=== PATIENT | male | born 1980 | race Two or more races ===

== ENCOUNTER 2022-07-04 16:35 | Observation (INO) | payer SELFPAY ==
--- NOTE | ~2022-07-04 | XR_ITS ---
EXAMINATION: XR retrograde pyelogram RT DATE: 07/05/2022 11:00 MINE ADMINISTRATOR SUPERVISOR INDICATION: RT STONE EXTRACTION, RETRO . TECHNIQUE: 1 fluoroscopic image and one cine clip of 56 images of the right lower quadrant were obtai will during right retrograde pyelography and stone extraction performed by the surgeon. I was not pres ent in the operating room. Fluoroscopy exposure time was 19.2 seconds. DAP [id number] [id number]. COMPARISON: X-ray abdomen 07/04/2022 FINDINGS: The 7 x 2 mm calcification in the right hemipelvis is noted in the initial cine image and appears to be located in the distal ureter but is quickly obscured by contrast. Multiple air bubble filling defe cts. Mild ureteral ectasia. Wire access accomplished to the upper collecting system. IMPRESSION: Fluoroscopic documentation of right retrograde pyelography and stone extraction. Please refer to the operative note for complete procedural details . Reviewed, dictated and finalized at location K. ADMINISTRATOR SUPERVISOR IMPRESSION: Fluoroscopic documentation of right retrograde pyelography and stone extraction . Please refer to the operative note for complete procedural details .
--- NOTE | ~2022-07-04 | XR_ITS ---
EXAMINATION: XR abdomen/kub 1V DATE: 07/04/2022 19:26 INDICATION: Urolithiasis TECHNIQUE: A supine view of the abdomen on 2 radiographs was obtained. COMPARISON: None. FINDINGS: 7 x 2 mm calcification suspicious for distal ureteral stone located at and oriented along the normal course of the distal ureter at the right ureterovesicular junction. No other suspicious calcification s in the abdomen or pelvis. No dilated loops of gas-filled bowel to suggest obstruction. Lung bases a re clear. Heart size is normal. Bones and soft tissues are unremarkable. IMPRESSION: 1. 7 x 2 mm calcification at the right hemipelvis suspicious for stone at the right ureterovesicular junction. Reviewed, dictated and finalized at location A. EATIONAL RESORT MANAGER IMPRESSION: 1. 7 x 2 mm calcification at the right hemipelvis suspicious for stone at the r ight ureterovesicular junction.
[2022-07-04 17:41] VITALS: BP 128/74; PULSE 75; RESP 16; TEMP 37.1; O2SAT 99
--- NOTE | 2022-07-04 19:16 | ED.MALEGU ---
HPI - Male Genitourinary General Chief complaint: Urogenital-Male <Aiyana Butler PA-C - Last Filed: 07/05/22 00:26> Stated complaint: flank pain <LEE Moctezuma Last Filed: 07/05/22 00:26> Time Seen by Provider: 07/04/22 19:01 <Aiyana Butler PA-C - Last Filed: 07/05/22 00:26> Source: patient <LEE Moctezuma Last Filed: 07/05/22 00:26> Mode of arrival: ambulatory <LEE Moctezuma Last Filed: 07/05/22 00:26> Limitations: no limitations <LEE Moctezuma Last Filed: 07/05/22 00:26> History of Present Illness HPI Narrative: This is a 42-year-old male that presents to the emergency department for flank pain ongoing over the last 4 days. Reports he has a known kidney stone. He was seen at [facility] on Thursday and diagnosed. Discharged with pain medication. Reports today his pain was not relieved with prescribed medications which prompted him to be seen. Reports he has been having difficulty urinating today. Denies fever, vomiting, or hematuria. <Aiyana Butler PA-C - Last Filed: 07/05/22 00:26> Related Data Allergies/Adverse reactions: Allergies Allergy/AdvReac Type Severity Reaction Status Date / Time No Known Allergies Allergy Mild Unverified 08/01/05 11:31 <Aiyana Butler PA-C - Last Filed: 07/05/22 00:26> Review of Systems Review of Systems: CONSTITUTIONAL: Denies fever GASTROINTESTINAL: Reports nausea. Denies abdominal pain, vomiting GENITOURINARY: Reports dysuria. Denies hematuria. MUSCULOSKELETAL: Reports back pain <LEE Moctezuma Last Filed: 07/05/22 00:26> All systems reviewed & are unremarkable except as noted in HPI and below <LEE Moctezuma Last Filed: 07/05/22 00:26> [facility] Past Medical History Medical History: Medical History (Updated 07/05/22 @ 00:26 by Aiyana Butler PA-C) No active medical problems <Aiyana Butler PA-C - Last Filed: 07/05/22 00:26> Social History Social History: Social History (Updated 07/04/22 @ 19:19 by Aiyana Butler PA-C) Smoking status: Never smoker <Aiyana Butler PA-C - Last Filed: 07/05/22 00:26> Exam Narrative: GENERAL: Well-appearing, well-nourished, and in no acute distress. HEAD: Normocephalic, atraumatic. EYES: EOMI. CHEST: Clear to auscultation. No respiratory distress. No wheezes rales or rhonchi HEART: Regular rate and rhythm. No murmur heard. Normal peripheral pulses. ABDOMEN: Soft, nontender, nondistended, normal active bowel sounds. No CVA tenderness EXTREMITIES: Normal range of motion. No edema. SKIN: Warm, dry, no rash. NEURO: No focal deficits. Alert and oriented x3. PSYCH: Normal mood and affect <Aiyana Butler PA-C - Last Filed: 07/05/22 00:26> Course AQUATIC HABITAT BIOLOGIST/PA Physician Supervision For this encounter, I have reviewed the PA documentation, treatment plan and medical decision making: And I have had ipiw-za-zhxa time with the patient. On exam the abdomen is soft with tenderness to palpation right upper quadrant right lower quadrant no rebound or guarding, right flank tenderness discussed with patient plan for admission all questions answered patient agreement at this time <Jose Luis Christine DO - Last Filed: 07/05/22 00:14> Consultations Consultation #1: Reviewed patient's records from previous hospital visit at [facility]. CT scan of the abdomen and pelvis shows a 4 mm distal right ureteral stone with minimal right hydroureteronephrosis <Aiyana Butler PA-C - Last Filed: 07/05/22 00:26> Date: 07/04/22 <Aiyana Butler PA-C - Last Filed: 07/05/22 00:26> Time: 21:44 <LEE Mcotezuma Last Filed: 07/05/22 00:26> Consultation #2: Spoke with Dr. Hauser about patient and work-up. Patient will be made n.p.o. at midnight for possible procedure <Aiyana Butler PA-C - Last Filed: 07/05/22 00:26> Date: 07/04/22 <Aiyana Butler PA-C - Last Filed: 07/05/22 00:26> Vital Signs
[2022-07-04 19:20] LABS: Basophils Percent Auto 0.2 % (0.2-1.2); Eosinophils Percent Auto 0.2 % (0-4.4); Hematocrit 42.4 % (42.0-52.0); Hemoglobin 14.3 g/dL (14.0-18.0); Immature Granulocyte Absolute 0.07 K/mm3 (0.00-0.031); Immature Granulocyte Percent A 0.6 % (0-0.5); Lymphocytes Absolute Auto 0.95 K/mm3 (0.9-3.2); Lymphocytes Percent Auto 7.5 % (18.3-44.2); Mean Corpuscular HGB Conc 33.7 g/dl (32-36); Mean Corpuscular Hemoglobin 29.1 pg (26-34); Mean Corpuscular Volume 86.2 fl (80-100); Monocytes Absolute Auto 0.8 K/mm3 (0.1-0.6); Monocytes Percent Auto 6.4 % (2.6-8.5); Neutrophils Absolute Auto 10.8 K/mm3 (1.3-6.7); Neutrophils Percent Auto 85.1 % (45.5-73.1); Platelet Count Result 257 k/mm3 (150-375); Red Blood Count 4.92 M/mm3 (4.6-6.20); Red Cell Distribution Width 12.5 % (11.5-14.5); White Blood Count 12.7 K/mm3 (4.5-10.0)
[2022-07-04 19:29] LABS: Alanine Aminotransferase 21 U/L (6-50); Albumin Level 4.7 g/dL (3.5-5.1); Alkaline Phosphatase 63 U/L (38-126); Anion Gap 11 mmol/L (8-16); Aspartate Amino Transferase 24 U/L (17-59); Bilirubin,Total 0.5 mg/dL (0.2-1.3); Blood Urea Nitrogen 20 mg/dL (9-20); Calcium 8.9 mg/dL (8.4-10.2); Carbon Dioxide 24 mmol/L (22-30); Chloride 103 mmol/L (98-107); Estimated CRCL calculation 72 ml/min; Estimated Glomerular Filt Rate > 60; Glucose 133 mg/dL (65-110); Potassium 4.3 mmol/L (3.4-5.0); Sodium 138 mmol/L (137-145)
[2022-07-04] MEDS: SODIUM CHLORIDE 0.9% IV 1,000 ML 999 ML IV CONT (19:36)
[2022-07-04] MEDS: MORPHINE SULFATE (*CRX) 4 MG/ML INJ IV PUSH ×2 (19:37→22:16)
[2022-07-04] MEDS: ONDANSETRON INJ 4 MG/2 ML VIAL IV PUSH (19:37)
[2022-07-04 22:15] LABS: Appearance Urine Clear (Clear); Bilirubin Urine Negative (Negative); Blood Urine Negative (Negative); Color Urine Yellow (Yellow); Glucose Urine UA Negative (Negative); Ketones Urine 1+ mg/dL (Negative); Leukocyte Esterase Ur Negative LEU/UL (Negative); Nitrate Urine Negative (Negative); Protein Urine Negative (Negative); Specific Grav Ur >= 1.030 (1.001-1.035); Urobilinogen Urine 0.2 mg/dL (<2.0); pH Urine 5.5 (5.0-9.0)
[2022-07-04 22:19] VITALS: BP 126/76; PULSE 76; RESP 18; O2SAT 99
[2022-07-04 22:21] LABS: Add Urine Microscopic? YES; Amorphous Sediment Urine Few; Mucus Urine Rare /lpf; Squamous Epithelial Cell Urine Rare /hpf (Few)
[2022-07-04 23:33] VITALS: BP 144/75; PULSE 75; RESP 16; O2SAT 98
[2022-07-04] MEDS: KETOROLAC 15 MG/ML VIAL (*BKC) IV PUSH (23:53)
[2022-07-05] VITALS (7 sets, daily range): BP systolic 100–134; BP diastolic 63–88; PULSE 57–74; RESP 11–18; TEMP 36.1–36.6; O2SAT 98–100; BMI 30.2
[2022-07-05] MEDS: SODIUM CHLORIDE 0.9% IV 1,000 ML 125 ML IV CONT (01:49)
[2022-07-05] MEDS: KETOROLAC 30 MG/ML VIAL (*BKC) IV PUSH ×4 (02:32→14:38)
[2022-07-05 05:51] LABS: Basophils Percent Auto 0.3 % (0.2-1.2); Eosinophils Absolute Auto 0.1 K/mm3 (0-0.3); Eosinophils Percent Auto 1.2 % (0-4.4); Hematocrit 39.9 % (42.0-52.0); Hemoglobin 13.4 g/dL (14.0-18.0); Immature Granulocyte Absolute 0.04 K/mm3 (0.00-0.031); Immature Granulocyte Percent A 0.4 % (0-0.5); Lymphocytes Absolute Auto 2.05 K/mm3 (0.9-3.2); Lymphocytes Percent Auto 22.8 % (18.3-44.2); Mean Corpuscular HGB Conc 33.6 g/dl (32-36); Mean Corpuscular Hemoglobin 28.4 pg (26-34); Mean Corpuscular Volume 84.5 fl (80-100); Mean Platelet Volume 9.7 fl (7.4-10.4); Monocytes Absolute Auto 1.1 K/mm3 (0.1-0.6); Monocytes Percent Auto 12.6 % (2.6-8.5); Neutrophils Absolute Auto 5.6 K/mm3 (1.3-6.7); Neutrophils Percent Auto 62.7 % (45.5-73.1); Platelet Count Result 208 k/mm3 (150-375); Red Blood Count 4.72 M/mm3 (4.6-6.20); Red Cell Distribution Width 12.5 % (11.5-14.5)
[2022-07-05 06:06] LABS: Anion Gap 5 mmol/L (8-16); Blood Urea Nitrogen 19 mg/dL (9-20); Calcium 8.1 mg/dL (8.4-10.2); Carbon Dioxide 26 mmol/L (22-30); Chloride 107 mmol/L (98-107); Estimated CRCL calculation 71 ml/min; Estimated Glomerular Filt Rate > 60; Glucose 103 mg/dL (65-110); Potassium 4.2 mmol/L (3.4-5.0); Sodium 138 mmol/L (137-145)
--- NOTE | 2022-07-05 07:54 | WPDANESEPPF ---
Anes - Initial Pre Proc Eval Procedure: right ureteroscopy Date/Time: 07/05/22 07:54 Surgeon: Levi Hauser MD Pre Op Diagnosis: Ureterolithiasis Patient Data Age: 42 Gender: M Height: 1.7 m Weight: 87.7 kg Last Vital Signs Temp 36.6 C 07/05/22 05:28 Pulse 63 07/05/22 05:28 Resp 18 07/05/22 05:28 BP 134/63 07/05/22 05:28 Pulse Ox 98 07/05/22 05:28 O2 Del Method Room Air 07/04/22 17:41 Allergies Allergy/AdvReac Type Severity Reaction Status Date / Time No Known Allergies Allergy Mild Unverified 08/01/05 11:31 Home Medications Medication Instructions Recorded Confirmed Type hydrocodone 5 mg-acetaminophen 325 1 tablet PO Q6H PRN pain #20 tabs 07/05/22 Rx mg tablet phenazopyridine 200 mg tablet 200 mg PO TID PRN pain 6 doses #30 07/05/22 Rx (Pyridium) tabs ciprofloxacin HCl 500 mg tablet 500 mg PO Q12H #14 tabs 07/06/22 Rx ketorolac 10 mg tablet 10 mg PO Q6H PRN pain #8 tabs 07/06/22 Rx promethazine 25 mg tablet 25 mg PO Q6H PRN nausea and 07/06/22 Rx vomiting #8 tabs Laboratory Tests 07/04/22 07/04/22 07/04/22 19:04 19:04 22:02 WBC 12.7 K/mm3 H K/mm3 (4.5-10.0) RBC 4.92 M/mm3 M/mm3 (4.6-6.20) Hgb 14.3 g/dL g/dL (14.0-18.0) Hct 42.4 % % (42.0-52.0) MCV 86.2 fl fl (80-100) MCH 29.1 pg pg (26-34) MCHC 33.7 g/dl g/dl (32-36) RDW 12.5 % % (11.5-14.5) Plt Count 257 k/mm3 k/mm3 (150-375) MPV 10.0 fl fl (7.4-10.4) Immature Gran % (Auto) 0.6 % H % (0-0.5) Neut % (Auto) 85.1 % H % (45.5-73.1) Lymph % (Auto) 7.5 % L % (18.3-44.2) [place] % (Auto) 6.4 % % (2.6-8.5) Eos % (Auto) 0.2 % % (0-4.4) Baso % (Auto) 0.2 % % (0.2-1.2) Lymph # (Auto) 0.95 K/mm3 K/mm3 (0.9-3.2) [place] # (Auto) 0.8 K/mm3 H K/mm3 (0.1-0.6) Eos # (Auto) 0.0 K/mm3 K/mm3 (0-0.3) Baso # (Auto) 0.0 K/mm3 K/mm3 (0.0-0.1) Abs Immat Gran (auto) 0.07 K/mm3 H K/mm3 (0.00-0.031) Absolute Neuts (auto) 10.8 K/mm3 H K/mm3 (1.3-6.7) Absolute Nucleated RBC 0.0 K/mm3 K/mm3 (0.0-0.012) Nucleated RBC % 0.0 % % (0.0-0.2) Sodium 138 mmol/L mmol/L (137-145) Potassium 4.3 mmol/L mmol/L (3.4-5.0) Chloride 103 mmol/L mmol/L (98-107) Carbon Dioxide 24 mmol/L mmol/L (22-30) Anion Gap 11 mmol/L mmol/L (8-16) BUN 20 mg/dL mg/dL (9-20) Creatinine 1.30 mg/dL mg/dL (0.7-1.3) Estim Creat Clear Calc 72 ml/min ml/min Estimated GFR > 60 (59 - ) Glucose 133 mg/dL H mg/dL (65-110) Calcium 8.9 mg/dL mg/dL (8.4-10.2) Total Bilirubin 0.5 mg/dL mg/dL (0.2-1.3) AST 24 U/L U/L (17-59) ALT 21 U/L U/L (6-50) Alkaline Phosphatase 63 U/L U/L (38-126) Total Protein 8.0 g/dL g/dL (6.3-8.2) Albumin 4.7 g/dL g/dL (3.5-5.1) Urine Color Yellow (Yellow) Urine Appearance Clear (Clear) Urine pH 5.5 (5.0-9.0) Ur Specific [place] >= 1.030 (1.001-1.035) Urine Protein Negative mg/dL mg/dL (Negative) Urine Glucose (UA) Negative mg/dL mg/dL (Negative) Urine Ketones 1+ mg/dL H mg/dL (Negative) Ur Blood (Man) Negative (Negative) Urine Nitrate Negative (Negative) Urine Bilirubin Negative (Negative) Urine Urobilinogen 0.2 mg/dL mg/dL (<2.0) Leukocyte Esterase Rfl Negative FABIEN/UL FABIEN/UL (Negative) Urine RBC 3-5 /hpf H /hpf (0-2) Urine WBC 4-6 /hpf H /hpf Ur Squamous Epith Cells Rare /hpf /hpf (Few) Amorphous Sediment Few H (None) Urine Mucus Rare /lpf /lpf 07/05/22 07/05/22 05:3
--- NOTE | 2022-07-05 10:41 | P.PNAN_ITS ---
Anes - Eval Final PreProcedure Day of Procedure 07/05/22 10:41 Patient weight: obese Heart: regular rate and rhythm Lungs: clear to auscultation and normal air movement Airway: Mallampati scale class II Neurological: alert and oriented Last oral intake: >/= 8 hours ASA classification: II Emergent: yes Anesthetic plan: proceed Anesthesia type and monitoring: general LMA Results Review: All pre-operative results and documents have been reviewed as part of the pre- operative evaluation. Informed Consent: The patient's anesthetic plan and its attendant risks and benefits were discussed with the patient/family/POA. Questions were solicited and answers provided to the satisfaction of the patient/family/POA.
--- NOTE | 2022-07-05 10:49 | WPDHPUPDATE1 ---
History and Physical Update Update Date/Time: 07/05/22 10:49 History and Physical has been reviewed, including an updated exam of the patient. There are NO changes in the patient's condition. Risks, benefits, and alternatives have been discussed and questions answered. Patient agrees to proceed with procedure.
[2022-07-05] MEDS: LACTATED RINGERS 1,000 ML 30 ML IV CONT (10:50)
--- NOTE | 2022-07-05 10:50 | PM.IMHP ---
H&P: HPI History of Present Illness Date/Time: 07/05/22 10:50 Chief Complaint: Ureteral stone Narrative: This is a 42-year-old gentleman with prior history of stone disease. Previous stone is passed on its own. He has had several weeks of right flank pain. He went to the ER at [facility]. He was diagnosed with a 4 mm right distal ureteral stone. He was sent home on pain medications. Pain became significantly worse last night and was associated with nausea and vomiting. He presented to the emergency room. A KUB was done which showed a calcification in the right distal ureter. A repeat CT scan was not done. I have reviewed his imaging report from the outside hospital. His pain is improved but still present. He has not had nausea vomiting since last night. He has no fevers chills. There is no symptoms of urinary tract infection. We will plan on intervention for his stone Review of Systems Review of Systems: All systems reviewed & are unremarkable except as noted in HPI and below PMFSH Past Medical History Medical History No active medical problems Social History Social History Smoking status: Never smoker Alcohol intake: never Substance use: never Lack of Transportation: No Lack of Food: Never True Current Housing: I Have Housing Concerned About Future Housing: No Difficulty Paying Gas/Electric Bills: No Difficulty Paying for Meds: No Currently Unemployed: No Education: Decline to Answer Difficulty w/ Childcare or Family Care: No Spiritual care concerns: No 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 Medications and Allergies Allergies Allergy/AdvReac Type Severity Reaction Status Date / Time No Known Allergies Allergy Mild Unverified 08/01/05 11:31 Vital Signs Vital Signs - 24 hr 07/04/22 17:41 07/04/22 22:19 07/04/22 23:33 Temperature 98.7 F Pulse Rate 75 76 75 Respiratory Rate 16 18 16 Blood Pressure 128/74 126/76 144/75 H Pulse Oximetry 99 99 98 Oxygen Delivery Room Air 07/05/22 01:38 07/05/22 05:28 07/05/22 08:00 Temperature 97.7 F 97.9 F Pulse Rate 57 L 63 Respiratory Rate 18 18 Blood Pressure 116/63 134/63 Pulse Oximetry 98 98 Oxygen Delivery Room Air Exam Const: General: cooperative, healthy appearing, no acute distress, well developed, alert, awake, well groomed and average body habitus Nutritional Appearance: average body habitus and well nourished Orientation/consciousness: patient oriented x3 HENMT: Head: normal to inspection Eyes: General: appearance normal, both eyes and all related structures Neck: Neck: normal visual inspection and full ROM Resp: Effort & Inspection: normal respiratory effort, able to speak in complete sentences, no cough, no grunting and not labored GI: Inspection: normal to inspection : Other: Deferred for OR Back/Spine/Pelvis: Back: CVA tenderness (On the right) Skin: General skin exam: normal color and no rashes or lesions noted Neuro: General: oriented to person, oriented to place, oriented to time and moves all extremities Cognition (Neuro): normal cognition Speech: normal speech Extrem: General: normal to inspection and full ROM Psych: Appearance: grossly normal and well kempt Mental Status: mental status grossly normal Speech and movement: Normal speech and movement present and Clear speech present Affect: normal affect H&P: Results Labs Labs: Short CBC 07/04/22 07/05/22 Range/Units 19:04 05:38 WBC 12.7 H 9.0 (4.5-10.0) K/mm3 Hgb 14.3 13.4 L (14.0-18.0) g/dL Hct 42.4 39.9 L (42.0-52.0) % Plt Count 257 208 (150-375) k/mm3 BMP 07/04/22 07/05/22 19:04 05:38 Sodium 138 138 Potassium 4.3 4.2 Chloride 103 107 Carbon Dioxide 24 26 BUN 20 19 Creatinine 1.30 1.30 Glucose 133 H 103 Calcium 8.9 8.1 L Liver Fu
[2022-07-05] MEDS: ceFAZolin 2 GM/D5W 50 ML 2 GM/50 ML BAG IVPB (10:55)
[2022-07-05] MEDS: LIDOCAINE HCL 2% GEL UROJET 10 ML PKG MUCOUS MEM (11:21)
--- NOTE | 2022-07-05 11:25 | W.PM.PROC2 ---
Procedure Note - Detailed Date of Procedure 07/05/22 Pre-op Diagnosis Right ureteral stone Post-op Diagnosis Same Procedure Performed Cystoscopy, right retrograde pyelogram, right ureteroscopy, basket stone extraction, stent placement Surgeon Levi Hauser MD Anesthesia General Indications This is a gentleman with a right ureteral stone. It has failed outpatient management. He is here today for intervention. He understands risks of bleeding, infection, damage to the urinary tract. He agrees to proceed Findings Right ureteral stone basketed and extracted intact Description of Procedure His correctly identified. Informed consent obtained. From the operating room. He was given general anesthesia. He was prepped and draped in a sterile fashion. Time-out performed. I performed cystoscopy. The bladder was examined. There is no significant abnormalities. I placed a guidewire into the ureteral orifice. I did a retrograde pyelogram on the right. The stone was seen as a filling defect. There is hydronephrosis proximal to the stone. I placed a guidewire to the kidney. I dilated the ureter with the 810 dilator. I then performed ureteroscopy. Stone was encountered. It was basketed and extracted intact. I reperformed ureteroscopy. There is no stone fragments. There was minimal redness to the ureter. I reshot a retrograde pyelogram. There is no extravasation and good drainage. I elected to not leave a stent. Wires removed. Uro jet was applied. He was awakened and transferred to PACU in stable condition Implants None Estimated Blood Loss 1 Urine Output 150 Drains No Packing No Pathology Yes (Stone to pathology) Complications No immediate complications Condition Stable Disposition PACU
--- NOTE | 2022-07-05 11:30 | PM.DS ---
DS: Admitting Diagnosis Discharge Date 07/05/2022 Admitting Diagnosis Right ureteral stone DS: Discharge Diagnosis Discharge Diagnosis Plan Stone extracted. Outpatient follow-up in 3-6 months DS: Summary Hospital Course Reason for hospitalization: Ureteral stone Hospital Course: He was admitted the hospital for pain control due to ureteral stone. He underwent uncomplicated ureteroscopy with stone extraction Status at Discharge Cognitive/behavioral status at discharge: Stable Functional status at discharge: independent ambulation Time Spent with Patient Time attestation: Total time spent providing and/or coordinating discharge services: DS: Data Data Completed and Pending Pending studies at discharge: Pending at discharge 07/05/22 11:18 Surgical [PTH] Routine Labs on day of discharge: Labs from last 24 hours 07/05/22 07/05/22 07/04/22 05:38 05:38 22:02 WBC 9.0 RBC 4.72 Hgb 13.4 L Hct 39.9 L MCV 84.5 MCH 28.4 MCHC 33.6 RDW 12.5 Plt Count 208 MPV 9.7 Immature Gran % (Auto) 0.4 Neut % (Auto) 62.7 Lymph % (Auto) 22.8 [place] % (Auto) 12.6 H Eos % (Auto) 1.2 Baso % (Auto) 0.3 Lymph # (Auto) 2.05 [place] # (Auto) 1.1 H Eos # (Auto) 0.1 Baso # (Auto) 0.0 Abs Immat Gran (auto) 0.04 H Absolute Neuts (auto) 5.6 Absolute Nucleated RBC 0.0 Nucleated RBC % 0.0 Sodium 138 Potassium 4.2 Chloride 107 Carbon Dioxide 26 Anion Gap 5 L BUN 19 Creatinine 1.30 Estim Creat Clear Calc 71 Estimated GFR > 60 Glucose 103 Calcium 8.1 L Total Bilirubin AST ALT Alkaline Phosphatase Total Protein Albumin Urine Color Yellow Urine Appearance Clear Urine pH 5.5 Ur Specific [place] >= 1.030 Urine Protein Negative Urine Glucose (UA) Negative Urine Ketones 1+ H Ur Blood (Man) Negative Urine Nitrate Negative Urine Bilirubin Negative Urine Urobilinogen 0.2 Leukocyte Esterase Rfl Negative Urine RBC 3-5 H Urine WBC 4-6 H Ur Squamous Epith Cells Rare Amorphous Sediment Few H Urine Mucus Rare 07/04/22 07/04/22 19:04 19:04 WBC 12.7 H RBC 4.92 Hgb 14.3 Hct 42.4 MCV 86.2 MCH 29.1 MCHC 33.7 RDW 12.5 Plt Count 257 MPV 10.0 Immature Gran % (Auto) 0.6 H Neut % (Auto) 85.1 H Lymph % (Auto) 7.5 L [place] % (Auto) 6.4 Eos % (Auto) 0.2 Baso % (Auto) 0.2 Lymph # (Auto) 0.95 [place] # (Auto) 0.8 H Eos # (Auto) 0.0 Baso # (Auto) 0.0 Abs Immat Gran (auto) 0.07 H Absolute Neuts (auto) 10.8 H Absolute Nucleated RBC 0.0 Nucleated RBC % 0.0 Sodium 138 Potassium 4.3 Chloride 103 Carbon Dioxide 24 Anion Gap 11 BUN 20 Creatinine 1.30 Estim Creat Clear Calc 72 Estimated GFR > 60 Glucose 133 H Calcium 8.9 Total Bilirubin 0.5 AST 24 ALT 21 Alkaline Phosphatase 63 Total Protein 8.0 Albumin 4.7 Urine Color Urine Appearance Urine pH Ur Specific [place] Urine Protein Urine Glucose (UA) Urine Ketones Ur Blood (Man) Urine Nitrate Urine Bilirubin Urine Urobilinogen Leukocyte Esterase Rfl Urine RBC Urine WBC Ur Squamous Epith Cells Amorphous Sediment Urine Mucus Procedures/Treatments: Ureteroscopy with stone extraction Discharge Plan Discharge Attending physician on discharge: Levi Hauser Discharging Clinician: Levi Hauser Anticipated Discharge Date/Time: 07/05/22 11:32 Patient Disposition: Home, Self-Care Activity: may shower Diet: as tolerated Discharge Instructions: Light activity for a few days Patient Instructions: Antibiotic Form Stand Alone Forms: General Discharge Information Follow-up/Referrals: Levi Hauser MD [Physician] - (Follow-up Urology in 3-6 months [phone]) Discharge Medications: New hydrocodone-acetaminophen 5-325 mg tablet 1 tablet PO Q6
[2022-07-05] MEDS: fentaNYL CITRATE INJ (*CRX) 100 MCG/2 ML VIAL 25 MCG IV PUSH (12:06)
== END 2022-07-05 15:00 | disposition home or self-care (01) ==
LOC: ANHED 07-05 00:26 → ANH3MED 07-05 00:38
PROVIDERS: Physician Assistant; Admitting Provider Urology; Emergency Provider Emergency Medicine; Visit Provider Urology
PROC: (CPT 52352; principal; 2022-07-05 10:30)
DX: N20.1 Calculus of ureter (principal); D72.829 Elevated white blood cell count, unspecified; E66.9 Obesity, unspecified; Z68.30 Body mass index [BMI] 30.0-30.9, adult
CPT/HCPCS: 52352; 52332; 36415; 74018; 74420; 80048; 80053; 81001; 82365; 85025; 88300; 96361; 96365; 96375; 96376; 99285; A9270; C1769; G0378; J0131; J0690; J1100; J1885; J2250; J2270; J2405; J2704; J3010; J7030; J7120

== ENCOUNTER 2022-07-06 10:32 | Emergency (ER) | payer SELFPAY ==
[2022-07-06] VITALS (11 sets, daily range): BP systolic 120–131; BP diastolic 72–84; PULSE 70–76; RESP 16; TEMP 36.9; O2SAT 98–100
--- NOTE | ~2022-07-06 | CT_ITS ---
EXAMINATION: CT abdomen pelvis wo con DATE: 07/06/2022 14:57 INDICATION: Right flank pain. Prior right retrograde pyelography and stone extraction. Prior lithotri psy. TECHNIQUE: Computed tomography (CT) of the abdomen and pelvis was performed without intravenous contr ast. Automated exposure control and iterative reconstruction technique were employed. The dose-length product was 263.75 mGy-cm. COMPARISON: None. FINDINGS: Lower thorax: Dependent atelectasis. Liver: Normal. Biliary/Gallbladder: Gallbladder is normal. No bile duct dilation. Pancreas: No mass or duct dilation. Spleen: Normal. Adrenals:No mass. Kidneys: No suspicious mass. Punctate hyperdensities in the left kidney may represent nonobstructing calculi. Mild right perinephric stranding. Mild right hydronephrosis and inflammatory change along th e right ureter. No obstructing stone or mass detected. GI tract: No small or large bowel dilation. Appendix not visualized Diverticulosis without diverticul itis. Mesentery/Peritoneum: No ascites, mass, or free air. Retroperitoneum: No mass. Pelvis: Gas bubble in the urinary bladder likely from recent instrumentation. Pelvic organs otherwise normal.. Soft Tissues: Small uncomplicated fat-containing inguinal hernias. Small fat-containing umbilical her silverio with mild inflammatory change. Bones: No acute osseous finding. IMPRESSION: Mild right perinephric and periureteral stranding and right hydronephrosis, without obstructing stone or mass, likely representing recently passed stone and/or postprocedural changes. Reviewed, dictated and finalized at location [facility] [employer] IMPRESSION: Mild right perinephric and periureteral stranding and right hydronephrosis, wit hout obstructing stone or mass, likely representing recently passed stone and/o r postprocedural changes.
[2022-07-06 11:19] LABS: Basophils Percent Auto 0.4 % (0.2-1.2); Eosinophils Absolute Auto 0.1 K/mm3 (0-0.3); Eosinophils Percent Auto 1.5 % (0-4.4); Hematocrit 40.1 % (42.0-52.0); Hemoglobin 13.5 g/dL (14.0-18.0); Immature Granulocyte Absolute 0.03 K/mm3 (0.00-0.031); Immature Granulocyte Percent A 0.4 % (0-0.5); Lymphocytes Absolute Auto 2.31 K/mm3 (0.9-3.2); Lymphocytes Percent Auto 27.2 % (18.3-44.2); Mean Corpuscular HGB Conc 33.7 g/dl (32-36); Mean Corpuscular Hemoglobin 28.3 pg (26-34); Mean Corpuscular Volume 84.1 fl (80-100); Mean Platelet Volume 9.8 fl (7.4-10.4); Monocytes Absolute Auto 0.9 K/mm3 (0.1-0.6); Neutrophils Absolute Auto 5.1 K/mm3 (1.3-6.7); Neutrophils Percent Auto 59.5 % (45.5-73.1); Platelet Count Result 230 k/mm3 (150-375); Red Blood Count 4.77 M/mm3 (4.6-6.20); Red Cell Distribution Width 12.4 % (11.5-14.5); White Blood Count 8.5 K/mm3 (4.5-10.0)
[2022-07-06 11:29] LABS: Alanine Aminotransferase 18 U/L (6-50); Albumin Level 4.3 g/dL (3.5-5.1); Alkaline Phosphatase 56 U/L (38-126); Anion Gap 9 mmol/L (8-16); Aspartate Amino Transferase 23 U/L (17-59); Bilirubin,Total 0.8 mg/dL (0.2-1.3); Blood Urea Nitrogen 12 mg/dL (9-20); Calcium 8.5 mg/dL (8.4-10.2); Carbon Dioxide 26 mmol/L (22-30); Chloride 105 mmol/L (98-107); Estimated CRCL calculation 94 ml/min; Estimated Glomerular Filt Rate > 60; Glucose 120 mg/dL (65-110); Potassium 3.7 mmol/L (3.4-5.0); Sodium 140 mmol/L (137-145)
[2022-07-06 12:55] LABS: Mucus Urine Rare /lpf; RBC Urine >75 /hpf (0-2); Squamous Epithelial Cell Urine Rare /hpf (Few); WBC Urine 51-75 /hpf
[2022-07-06 12:56] LABS: Add Urine Microscopic? YES; Appearance Urine Cloudy (Clear); Color Urine Orange (Yellow)
[2022-07-06] MEDS: SODIUM CHLORIDE 0.9% IV 1,000 ML 999 ML IV CONT (14:00)
[2022-07-06] MEDS: KETOROLAC 30 MG/ML VIAL (*BKC) IV PUSH (14:00)
--- NOTE | 2022-07-06 15:41 | ED.MALEGU ---
HPI - Male Genitourinary General Chief complaint: Urogenital-Male Stated complaint: R. sided flank pain Time Seen by Provider: 07/06/22 13:24 History of Present Illness HPI Narrative: Patient is a 42-year-old male who presents ER with right-sided flank pain. Patient underwent procedure yesterday for a stone removal. No stent was left. Patient had a normal retrograde pyelogram. 7 no fevers or chills. Occasionally has spasms suprapubically. He has had mild dysuria but thinks it could be from the procedure. He did have a little blood but his urine is cleared up. Related Data Allergies Allergy/AdvReac Type Severity Reaction Status Date / Time No Known Allergies Allergy Mild Unverified 08/01/05 11:31 Review of Systems Review of Systems: All systems reviewed & are unremarkable except as noted in HPI and below Constitutional: Constitutional: Denies chills and Denies fever(s) ENT: Denies nasal congestion and Denies sore throat Gastrointestinal: Gastrointestinal: Reports abdominal pain, Reports nausea and Denies vomiting Genitourinary: Genitourinary: Reports hematuria, Reports dysuria and Denies urinary frequency Comments: Flank pain right Neurologic: Denies focal weakness and Denies numbness PMFSH Past Medical History Medical History No active medical problems Social History Social History Smoking status: Never smoker Alcohol intake: never Substance use: never Lack of Transportation: No Lack of Food: Never True Current Housing: I Have Housing Concerned About Future Housing: No Difficulty Paying Gas/Electric Bills: No Difficulty Paying for Meds: No Currently Unemployed: No Education: Decline to Answer Difficulty w/ Childcare or Family Care: No Spiritual care concerns: No Exam Narrative: GENERAL: Well-appearing, well-nourished, and in no acute distress. HEAD: Normocephalic, atraumatic. ENT: Mucous membranes moist. CHEST: Clear to auscultation. No respiratory distress. HEART: Regular rate and rhythm. Normal peripheral pulses. ABDOMEN: Soft, nontender, nondistended. Right CVA tenderness EXTREMITIES: Normal range of motion. No edema. SKIN: Warm, dry, no rash. NEURO: Alert and oriented x3. PSYCH: Normal mood and affect. Course Course Emergency Course: Patient resting comfortably. Received Toradol for pain. Informed of results. Discussed case with Dr. Hauser who performed procedure yesterday. Urine likely related to postprocedure inflammation but we will start on antibiotics and be cautious. Stranding felt to be related to procedure. No obstructing stone. Discharge home. Vital Signs Vital signs: Vital Signs Temperature 98.5 F 07/06/22 11:09 Pulse Rate 70 07/06/22 11:09 Respiratory Rate 16 07/06/22 11:09 Blood Pressure 131/84 07/06/22 11:09 Pulse Oximetry 99 07/06/22 11:09 Temperature 98.5 F 07/06/22 11:09 Pulse Rate 76 07/06/22 15:16 Respiratory Rate 16 07/06/22 15:16 Blood Pressure 122/72 07/06/22 15:16 Pulse Oximetry 99 07/06/22 15:30 MDM - Male Genitourinary Lab Data Result diagrams: 07/06/22 11:02 07/06/22 11:02 Labs: Lab Results 07/06/22 07/06/22 07/06/22 Range/Units 11:02 11:02 12:22 WBC 8.5 (4.5-10.0) K/mm3 RBC 4.77 (4.6-6.20) M/mm3 Hgb 13.5 L (14.0-18.0) g/dL Hct 40.1 L (42.0-52.0) % MCV 84.1 (80-100) fl MCH 28.3 (26-34) pg MCHC 33.7 (32-36) g/dl RDW 12.4 (11.5-14.5) % Plt Count 230 (150-375) k/mm3 MPV 9.8 (7.4-10.4) fl Immature Gran % (Auto) 0.4 (0-0.5) % Neut % (Auto) 59.5 (45.5-73.1) % Lymph % (Auto) 27.2 (18.3-44.2) % [place] % (Auto) 11.0 H (2.6-8.5) % Eos % (Auto) 1.5 (0-4.4) % Baso % (Auto) 0.4 (0.2-1.2) % Lymph # (Auto) 2.31 (0.9-3.2) K/mm3 [place] # (Auto) 0.9 H (0.1-0.6) K
== END 2022-07-06 16:02 | disposition home or self-care (01) ==
PROVIDERS: Emergency Provider Emergency Medicine; PCP Family Medicine Sports Medicine
DX: G89.18 Other acute postprocedural pain (principal); N39.0 Urinary tract infection, site not specified
CPT/HCPCS: 36415; 74176; 80053; 81001; 85025; 87086; 96361; 96374; 99284; J1885; J7030